=== PATIENT | female | born 1990 | race Hispanic/Latino ===

== ENCOUNTER 2018-09-28 20:17 | Emergency (ER) | payer OTHER ==
[2018-09-28 20:39] VITALS: BP 147/91; PULSE 66; RESP 16; TEMP 98.1; O2SAT 98
[2018-09-28] MEDS ORDERED: Absorbable Gelatin Sponge Size 12-7 ONE ×2 (21:28→21:53)
--- NOTE | 2018-09-28 21:30 | ED PDOC ---
Upper Extremity Pain/Injury Time Seen by Provider: 09/28/18 21:22 Chief Complaint (Nursing): Finger,Hand,&Wrist Chief Complaint (Provider): right finger History Per: Patient History/Exam Limitations: no limitations Onset/Duration Of Symptoms: Mins Current Symptoms Are (Timing): Still Present Quality: "Pain" Severity: Moderate Pain Scale Rating Of: 6 Additional History Per: Patient Additional Complaint(s): 28 year old female presents to the ED with right finger tip avulsion sustained while cutting and eggplant with mandolin slicer around 8pm. Patient states she she held pressure to finger immediately due to bleeding. Last tetanus was 3 years ago. Past Medical History Reviewed: Historical Data, Nursing Documentation, Vital Signs Vital Signs: Last Vital Signs Temp 98.1 F 09/28/18 20:35 Pulse 66 09/28/18 20:35 Resp 16 09/28/18 20:35 BP 147/91 H 09/28/18 20:35 Pulse Ox 98 09/28/18 20:35 - Surgical History Surgical History: No Surg Hx - Family History Family History: States: Unknown Family Hx - Living Arrangements Living Arrangements: With Family - Social History Alcohol: None Drugs: Denies - Immunization History Hx Tetanus Toxoid Vaccination: Yes (3 years ago ) - Home Medications Home Medications: Ambulatory Orders Medication Instructions Recorded Cephalexin [cephalexin] 500 mg PO Q12H #14 cap 09/28/18 - Allergies Allergies/Adverse Reactions: Allergies Allergy/AdvReac Type Severity Reaction Status Date / Time No Known Allergies Allergy Verified 09/28/18 20:35 Review of Systems ROS Statement: Except As Marked, All Systems Reviewed And Found Negative Musculoskeletal: Positive for: Hand Pain (right 2nd digit pain ) Physical Exam - Reviewed Nursing Documentation Reviewed: Yes Vital Signs Reviewed: Yes - Physical Exam Appears: Positive for: Well, Non-toxic, No Acute Distress Head Exam: Positive for: ATRAUMATIC, NORMAL INSPECTION, NORMOCEPHALIC Skin: Positive for: Normal Color, Warm, DRY Eye Exam: Positive for: EOMI, Normal appearance, PERRL ENT: Positive for: Normal ENT Inspection Neck: Positive for: Normal, Painless ROM Cardiovascular/Chest: Positive for: Regular Rate, Rhythm Respiratory: Positive for: CNT, Normal Breath Sounds Pulses-Radial (L): 2+ Pulses-Radial (R): 2+ Gastrointestinal/Abdominal: Positive for: Normal Exam, Soft Back: Positive for: Normal Inspection Extremity: Positive for: Normal ROM, Capillary Refill (<2 secs, ), Other (right 2nd digit finger pad complete avulsion (right corner), <1 cm in length. neg for nail involvement. ) Neurological/Psych: Positive for: Awake, Alert, Normal Tone, Oriented - ECG O2 Sat by Pulse Oximetry: 98 Medical Decision Making Medical Decision Making: finger irrigated with 0.9ns with 75 cc of normal saline with splash guard use. pressure applied with gel foam and applied clean dressing and lo. Patient given detailed wound care instructions. As well as extra gel foam increase bleeding persists. rx given for keflex. return to ed precautions given. Disposition - Clinical Impression Clinical Impression: Finger avulsion - Patient ED Disposition Is Patient to be Admitted: No - Disposition Disposition: Routine/Home Disposition Time: 21:40 Condition: GOOD Prescriptions: Cephalexin [cephalexin] 500 mg PO Q12H #14 cap Instructions: Wound Care (DC), Common Finger Injuries (DC) Print Language: GUAMANIAN - POA Present On Arrival: None
== END 2018-09-28 22:06 | disposition home or self-care (01) ==
LOC: H.ER 20:17
DX: S61.200A Unspecified open wound of right index finger without damage to nail, initial encounter (principal); W45.8XXA Other foreign body or object entering through skin, initial encounter; Y93.G1 Activity, food preparation and clean up